=== PATIENT | female | born 1970 | race Caucasian/White ===

== ENCOUNTER 2019-03-23 06:10 | Emergency (ER) | payer BC ==
--- NOTE | 2019-03-23 06:24 | Emergency Department Record ---
History of Present Illness - General Chief Complaint: Ankle/Foot Injury Stated Complaint: GLASS IN LEFT FOOT Time Seen by Provider: 03/23/19 06:17 Source: Patient Mode of Arrival: Ambulatory Limitations: No limitations - History of Present Illness Initial Comments: 48 yo female presents to ED for evaluation after stepping on glass yesterday morning. Patient reports that she was able to remove several small pieces of glass from the left forefoot, however feels that there may still be a piece remaining in the fore foot. Patient denies health problems at her baseline. MD Complaint: Foot injury Onset/Timin -: Hour(s) Injury: Foot: Left Type of Injury: Puncture wound, Other Place: Home Severity: Mild Severity scale (1-10): 2 Improves With: Rest Worsens With: Palpation Context: Walking, Other Other Symptoms: Other Associated Symptoms: Other Treatments Prior to Arrival: Other - Related Data Home Medications Medication Instructions Recorded Confirmed Last Taken No Home Med [NO HOME MEDS] 03/23/19 03/23/19 Unknown Allergies Allergy/AdvReac Type Severity Reaction Status Date / Time No Known Drug Allergies Allergy Unverified 01/28/17 11:02 Travel Screening - Travel/Exposure Within Last 30 Days Have you traveled within the last 30 days?: No - Travel Symptoms Symptom Screening: None Review of Systems Constitutional: Denies: Chills, Fever, Malaise, Night sweats Eyes: Denies: Eye discharge, Eye pain ENT: Denies: Congestion, Ear pain, Epistaxis Respiratory: Denies: Cough, Dyspnea Cardiovascular: Denies: Chest pain, Dyspnea on exertion Endocrine: Denies: Fatigue, Heat or cold intolerance Gastrointestinal: Denies: Abdominal pain, Nausea, Vomiting Genitourinary: Denies: Incontinence, Retention Musculoskeletal: Denies: Arthralgia, Back pain Skin: Reports: Other (Possible FB left fore fore foot). Denies: Bruising, Change in color Neurological: Denies: Abnormal gait, Confusion, Headache, Seizure Psychiatric: Denies: Anxiety Hematological/Lymphatic: Denies: Anemia, Blood Clots Physical Exam - General General Appearance: Alert, Oriented x3, Cooperative, No acute distress Limitations: No limitations - Head Head exam: Atraumatic, Normocephalic, Normal inspection Head exam detail: negative: Abrasion, Contusion, Wu's sign, General tenderness, Hematoma, Laceration - Eye Eye exam: Normal appearance. negative: Conjunctival injection, Periorbital swelling, Periorbital tenderness, Scleral icterus - ENT Ear exam: negative: Auricular hematoma, Auricular trauma Nasal Exam: negative: Active bleeding, Discharge, Dried blood, Foreign body Mouth exam: negative: Drooling, Laceration, Muffled voice, Tongue elevation - Neck Neck exam: Normal inspection. negative: Meningismus, Tenderness - Respiratory Respiratory exam: Normal lung sounds bilaterally. negative: Rales, Respiratory distress, Rhonchi, Stridor - Cardiovascular Cardiovascular Exam: Regular rate, Normal rhythm, Normal heart sounds - GI/Abdominal GI/Abdominal exam: Soft. negative: Rebound, Rigid, Tenderness - Rectal Rectal exam: Deferred - exam: Deferred - Extremities Extremities exam: Tenderness, Other (Small puncture wound to the left fore foot on examination, no obvious FB is present on visual inspection.). negative: Calf tenderness, Pedal edema - Back Back exam: Denies: CVA tenderness (R), CVA tenderness (L) - Neurological Neurological exam: Alert, Normal gait, Oriented X3 - Psychiatric Psychiatric exam: Normal affect, Normal mood - Skin Skin exam: Normal color. negative: Abrasion Type of lesion: negative: abrasion Course Vital Signs 03/23/19 06:15 Temperature 97.8 F Pulse Rate 63 Respiratory 18 Rate Blood Pressure 119/79 Pulse Ox 99 - Reevaluation(s) Reevaluation #1: 03/23/19 06:41 Left Foot: No radio-opaque FB is present to the soft-tissues on examination Patient was updated on her result, appears stable for discharge at this time. Disposition Disposition: Discharge Clinical Impression: No foreign body found on evaluation Disposition: Home, Self-Care Condition: (2) Stable Instructions: Puncture Wound (ED) Additional Instructions: Return to ED if your symptoms worsen or if you have any concerns. Follow-up with your family doctor in 3-5 days as directed. Forms: Patient Portal Access Time of Disposition: 06:42 Quality - Quality Measures Quality Measures: N/A - Blood Pressure Screening Does Patient Have Any of the Following: No Blood Pressure Classification: Normal BP Reading Systolic Measurement: 119 Diastolic Measurement: 79 Screening for High Blood Pressure: < Normal BP, F/U Not Required > [G8783]
--- NOTE | 2019-03-23 12:43 | RADIOLOGY REPORT ---
EXAM: LEFT FOOT, TWO VIEWS HISTORY: STEPPED ON GLASS. TECHNIQUE: Frontal and lateral views of the left foot were obtained. Comparison: None. FINDINGS: No cortical or trabecular disruption identified. The Lisfranc joint appears normal in alignment. The joint spaces appear maintained. No radiopaque foreign body visualized. There is a moderate size calcaneal spur. IMPRESSION: NO ACUTE ABNORMALITY EVIDENT RADIOGRAPHICALLY AT THIS TIME. JOB NUMBER: [id number] MTDD
== END 2019-03-23 06:53 | disposition home or self-care (01) ==
LOC: ER 06:10
DX: S91.332A Puncture wound without foreign body, left foot, initial encounter (principal); W25.XXXA Contact with sharp glass, initial encounter; W45.8XXA Other foreign body or object entering through skin, initial encounter
CPT/HCPCS: 99283